=== PATIENT | female | born 1980 | race Two or more races ===

== ENCOUNTER 2017-09-24 06:02 | Day surgery (SDC) | payer BC, OTHER ==
[2017-09-08 18:54] VITALS: BMI 31.2
--- NOTE | 2017-09-20 11:47 | HP ---
HISTORY OF PRESENT ILLNESS Patient is a 37 y/o female with a past medical history of cervical Ca (remission ), migraine headache, childhood asthma, SVT and DJD. patient is scheduled for an elective right knee arthoscopy, 09/24/17. PCP: Dr Maddox Recent travel: none Family History:mother alive and well father alive and well Social History:resides at home with and 4 children Smoking: none Alcohol:none Drugs: none REVIEW OF SYSTEMS CONSTITUTIONAL: Absent: fever, chills, diaphoresis, generalized weakness, malaise, loss of appetite, weight change HEENT: Absent: rhinorrhea, nasal congestion, throat pain, throat swelling, difficulty swallowing, mouth swelling, ear pain, eye pain, visual changes CARDIOVASCULAR: Absent: chest pain, syncope, palpitations, irregular heart rate, lightheadedness , peripheral edema RESPIRATORY: Absent: cough, shortness of breath, dyspnea with exertion, orthopnea, wheezing, stridor, hemoptysis GASTROINTESTINAL: Absent: abdominal pain, abdominal distension, nausea, vomiting, diarrhea, constipation, melena, hematochezia GENITOURINARY: Absent: dysuria, frequency, urgency, hesitancy, hematuria, flank pain, genital pain MUSCULOSKELETAL: Present: right knee pain Absent: myalgia, arthralgia, joint swelling, back pain, neck pain SKIN: Absent: rash, itching, pallor HEMATOLOGIC/IMMUNOLOGIC: Absent: easy bleeding, easy bruising, lymphadenopathy, frequent infections ENDOCRINE: Absent: unexplained weight gain, unexplained weight loss, heat intolerance, cold intolerance NEUROLOGIC: Absent: headache, focal weakness or paresthesias, dizziness, unsteady gait, seizure, mental status changes, bladder or bowel incontinence PSYCHIATRIC: Absent: anxiety, depression, suicidal or homicidal ideation, hallucinations. PHYSICAL EXAMINATION: GENERAL: Awake, alert, and fully oriented, in no acute distress. HEAD: Normal with no signs of trauma. EYES: Pupils equal, round and reactive to light, extraocular movements intact, sclera anicteric, conjunctiva clear. No lid lag. EARS, NOSE, THROAT: Ears normal, nares patent, oropharynx clear without exudates. Moist mucous membranes. NECK: Normal range of motion, supple without lymphadenopathy, JVD, or masses. LUNGS: Breath sounds equal, clear to auscultation bilaterally. No wheezes, and no crackles. No accessory muscle use. HEART: Regular rate and rhythm, normal S1 and S2 without murmur, rub or gallop. ABDOMEN: Soft, nontender, not distended, normoactive bowel sounds, no guarding, no rebound, no masses. No hepatomegaly or splenomegaly. MUSCULOSKELETAL: Normal range of motion at all joints. No bony deformities or tenderness. No CVA tenderness. UPPER EXTREMITIES: 2+ pulses, warm, well-perfused. No cyanosis. No clubbing. No peripheral edema. LOWER EXTREMITIES: 2+ pulses, warm, well-perfused. No calf tenderness. No peripheral edema. NEUROLOGICAL: Cranial nerves II-XII intact. Normal speech. Normal gait. PSYCHIATRIC: Cooperative. Good eye contact. Appropriate mood and affect. SKIN: Warm, dry, normal turgor, no rashes or lesions noted, normal capillary refill. ASSESSMENT/PLAN: 1) MS DJD - patient is pending right knee arthoscopy, 09/24/17, Dr Ramey 2) cardiovascular svt - reports last episode was 2015, last follow up with cardiology (Dr Schneider) was in 2016, denies any further incidents of chest pain or shortness of breath, reports taking metropolol daily 3) neuro migraine headaches - continue prn tripitin and pamalor patient is optimized for surgery, pending cardiology clearance
[2017-09-24] MEDS ORDERED: ePHEDrine SULFATE 50 MG/1 ML AMPULE ONE (07:16)
[2017-09-24] MEDS ORDERED: PROPOFOL 20 ML ONE ×5 (07:17)
[2017-09-24] MEDS ORDERED: SUCCINYLCHOLINE CHLORIDE 200 MG/10 ML VIAL ONE (07:17)
[2017-09-24] MEDS ORDERED: MIDAZOLAM HCL 2 MG/2 ML SINGLE DOSE VIAL ONE (07:17)
[2017-09-24] MEDS ORDERED: methylPREDNISolone ACET (DEPO) 40 MG/1 ML VIAL ONE (07:19)
[2017-09-24] MEDS ORDERED: BUPIVACAINE HCL/PF 2.5 MG/ML - 30 ML VIAL IJ ONE (07:19)
[2017-09-24] MEDS ORDERED: EPINEPHrine 1:1,000 1 MG/1 ML - 30ML VIAL (INJECTION) ONE (07:19)
[2017-09-24] MEDS ORDERED: DESFLURANE GAS 240 ML BOTTLE IH ONE (08:13)
[2017-09-24] MEDS ORDERED: DEXAMETHASONE SOD PHOSPHATE 4 MG/1 ML VIAL ONE (08:46)
[2017-09-24] MEDS ORDERED: KETOROLAC TROMETHAMINE 30 MG/1 ML VIAL ONE (08:46)
[2017-09-24] MEDS ORDERED: ONDANSETRON 4 MG/2 ML VIAL ONE ×2 (08:46→09:14)
[2017-09-24] MEDS ORDERED: TRIAMCINOLONE ACET 40MG/1ML VIAL ONE (08:49)
[2017-09-24] MEDS ORDERED: TRIAMCINOLONE ACET 40MG/1ML VIAL NR ONE (08:55)
[2017-09-24] MEDS ORDERED: BUPIVACAINE HCL/PF 0.25% (2.5MG/ML) 10 ML VIAL STI ONE (08:55)
[2017-09-24] MEDS ORDERED: HYDROmorphone HCL/PF 1 MG/ML VIAL (FOR PYXIS CHARGING ONLY) ONE (08:57)
[2017-09-24] MEDS ORDERED: PATIENT'S OWN MEDICATION (NON-FORMULARY) (Rizatriptan Benzoate [Rizatriptan] 10 MG) PO PRN (09:05)
--- NOTE | 2017-09-24 09:08 | OP ---
Operative Note - Note: Operative Date: 09/24/17 Pre-Operative Diagnosis: Right knee synovitis Operation: Surgical arthroscopy right knee. Synovial biopsy Findings: See dictation Post-Operative Diagnosis: Same as Pre-op Surgeon: Armand Ramey Speedometer Inspector: Syd Ramey Anesthesiologist/CASH VAN SALESPERSON: Justin Stevenson Anesthesia: General Specimens Removed: Synovial biopsy Estimated Blood Loss (mls): 0 Fluid Volume Replaced (mls): 500 Operative Report Dictated: Yes
--- NOTE | 2017-09-24 09:10 | PN ---
Progress Note (short form) - Note Progress Note: 37F s/p surgical arthroscopy right knee w/synovial biopsy POD #0. -Pain control. -Incentive spirometry. -PT/OT/Rehab if needed. -WBAT RLE. -Crutch training. -Keep dressing clean & dry; remove dressing on Wednesday and cover suture sites with water-proof Band-Aid. -Percocet ordered to pharmacy for analgesia. -Discharge home: f/u [facility] in 1 week; call for appointment: . Armand Ramey MD (Orthopaedic Surgery).
[2017-09-24] MEDS ORDERED: ONDANSETRON 4 MG/2 ML VIAL IVPUSH ONE (09:18)
[2017-09-24] MEDS ORDERED: ONDANSETRON 4 MG/2 ML VIAL IVPUSH PRN (09:22)
[2017-09-24] MEDS ORDERED: oxyCODONE HCL 5 MG TABLET PO PRN (09:22)
[2017-09-24] MEDS ORDERED: LACTATED RINGERS SOLUTION 1,000 ML IV SCH (09:30)
[2017-09-24] MEDS ORDERED: traMADol HCL 50 MG TABLET PO SCH (10:00)
[2017-09-24] MEDS ORDERED: PATIENT'S OWN MEDICATION (NON-FORMULARY) (Metoprolol Tartrate [Metoprolol Tartrate] 100 MG PO SCH (10:00)
[2017-09-24] MEDS ORDERED: oxyCODONE HCL 5 MG TABLET ONE (10:02)
[2017-09-24 10:19] VITALS: TEMP 97.8
[2017-09-24] MEDS ORDERED: PROMETHAZINE HCL 25 MG/1 ML VIAL ONE (10:52)
[2017-09-24] MEDS ORDERED: PROMETHAZINE HCL 25 MG/1 ML VIAL IVPUSH ONE (10:54)
--- NOTE | 2017-09-24 10:54 | OP ---
DATE OF OPERATION: DATE OF DICTATION: 09/24/2017 SURGEON: Armand Ramey MD ORACLE FUSION CONSULTANT: Syd Ramey MD PREOPERATIVE DIAGNOSIS: Chronic synovitis, right knee. POSTOPERATIVE DIAGNOSIS: Chronic synovitis, right knee. OPERATION PERFORMED: 1. Arthroscopy, right knee. 2. Arthroscopic lavage washout. 3. Synovial biopsy. ANESTHESIA: Spinal with conscious sedation. OPERATION IN DETAIL: Patient correctly identified. Brought into the operating room. Right lower extremity was prepped, free-draped in the routine manner with Betadine scrub solution, wiped off with alcohol, DuraPrep applied. Timeout was called. Imaging was available for intraoperative evaluation. Preop evaluation under anesthesia that is an examination under anesthesia revealed a negative Christian sign; heel shake negative with a full extension noted; patellar tracking normal; no crepitus in the patellofemoral or femorotibial joints; ligament stability in the coronal, sagittal and rotational plane normal. Arthroscopic instrumentation introduced via an anterolateral portal. The diagnostic arthroscopy revealed a pristine patellofemoral and medial and lateral joint compartments including the menisci which were normal. The intercondylar notch was normal. There were multiple loose fragments floating in the knee in the synovial space which were washed out with the lavage, but diffuse areas of synovitis with associated patchy areas of synovitis particularly in the suprapatellar pouch noted much like a cyclops lesion draping in the patellofemoral articulation due to the chronic synovitis and thickening. Multiple biopsies were taken using pituitary rongeurs, sent for culture and sensitivity that is to exclude an infection in the synovium and for routine histopathology. The joint was again lavaged. Portals were closed with 3-0 nylon. The biopsies were retrieved through a suprapatellar portal on the right and closed with 3-0 nylon. MD JAKOB [place]ona/[id number] MTDD
[2017-09-24 11:59] VITALS: BP 101/63; PULSE 82
[2017-09-24] MEDS ORDERED: NORTRIPTYLINE HCL 25 MG CAPSULE PO SCH (22:00)
--- NOTE | 2017-10-05 14:33 | PATH ---
Surgical Pathology Report Patient Name: AMBROSE HARDIN [facility]. Rec. #: [id number] /Age/Gender: 1980 (Age: 37) / F Account: [id number] [facility] Taken: 09/24/2017 Received: 09/24/2017 Reported: 10/05/2017 Physicians: Armand Ramey M.D. Specimen(s) Received RIGHT KNEE TISSUE Clinical History Right knee chronic synovitis Final Diagnosis KNEE TISSUE, RIGHT, EXCISION: SYNOVIUM SHOWING CHRONIC AND GRANULOMATOUS (NON-NECROTIZING) INFLAMMATION. AFB AND GMS STAINS ARE NEGATIVE FOR ACID-FAST BACILLI AND FUNGAL ORGANISMS, RESPECTIVELY. Electronically Signed Carli Hernandez M.D. Gross Description Received in formalin labeled "right knee tissue," are 2 jackson-yellow soft tissue fragments averaging 0.5 cm in greatest dimension. The specimens are submitted in toto in one cassette. /09/24/201709/24/2017
== END 2017-09-24 11:50 | disposition home or self-care (01) ==
LOC: FASU 06:02
PROVIDERS: ATTEND Orthopaedic Surgery Orthopaedic Surgery of the Spine
PROC: 0S9C4ZZ Drainage of Right Knee Joint, Percutaneous Endoscopic Approach (ICD-10-PCS; principal; 2017-09-24 08:27)
DX: M65.861 Other synovitis and tenosynovitis, right lower leg (principal)
CPT/HCPCS: 87070; 87075; 87205; 88305-TC; 88313-TC; 94760

== ENCOUNTER 2018-03-18 09:09 | Day surgery (SDC) | payer BC, OTHER ==
[2018-03-16 09:59] VITALS: BMI 32.4
[2018-03-18] MEDS ORDERED: methylPREDNISolone ACET (DEPO) 40 MG/1 ML VIAL ONE (13:06)
[2018-03-18] MEDS ORDERED: BUPIVACAINE HCL 0.25% 125 MG/50 ML VIAL ONE (13:06)
[2018-03-18] MEDS ORDERED: MIDAZOLAM HCL 2 MG/2 ML SINGLE DOSE VIAL ONE (13:25)
[2018-03-18] MEDS ORDERED: DEXAMETHASONE SOD PHOSPHATE 4 MG/1 ML VIAL ONE ×2 (13:37→14:49)
[2018-03-18] MEDS ORDERED: ONDANSETRON 4 MG/2 ML VIAL ONE ×3 (13:37→15:11)
[2018-03-18] MEDS ORDERED: PROPOFOL 20 ML ONE (13:39)
[2018-03-18] MEDS ORDERED: ceFAZolin SODIUM 1 GM VIAL ONE (13:45)
[2018-03-18] MEDS ORDERED: EPINEPHrine/PF 1 MG/1 ML (1:1,000) AMPULE ONE (14:35)
[2018-03-18] MEDS ORDERED: BUPIVACAINE HCL/PF 0.25% (2.5MG/ML) 10 ML VIAL IJ ONE (14:48)
[2018-03-18] MEDS ORDERED: PATIENT'S OWN MEDICATION (NON-FORMULARY) (Rizatriptan Benzoate [Rizatriptan] 10 MG) PO PRN (15:02)
--- NOTE | 2018-03-18 15:04 | PN ---
Progress Note (short form) - Note Progress Note: 48F s/p SARK, patellar chondroplasty POD #0. -Pain control. -WBAT RLE. -f/u post-op trial of void. -Diet as tolerated. -Keep dressing clean & dry; d/c on Wednesday & place waterproof Band-Aids over incision sites. -Cane vs crutches. -f/u [facility] [place] [facility] 03/25/2017; call for appointment; [phone]. Syd Ramey MD (Orthopaedic Surgery).
--- NOTE | 2018-03-18 15:06 | OP ---
Operative Note - Note: Operative Date: 03/18/18 Pre-Operative Diagnosis: Right medial meniscus tear Operation: Surgical arthroscopy right knee. Debridement. Chondroplasty patella Findings: 1. Chondral fibrillations patella 2. Degenerative ACL 3. No medial meniscus tear Tourniquet Pressure: 250mmHg Tourniquet Time: 40 minutes Post-Operative Diagnosis: Other (See findings) Surgeon: Syd Ramey Manager Personal: Armand Ramey Anesthesiologist/ORDER DISPATCHER CHIEF: Joseph Mojica Anesthesia: General (LMA) Estimated Blood Loss (mls): 0 Fluid Volume Replaced (mls): 1,000 (Crystalloid) Operative Report Dictated: Yes
[2018-03-18] MEDS ORDERED: oxyCODONE HCL 5 MG TABLET PO PRN (15:10)
[2018-03-18] MEDS ORDERED: PROMETHAZINE HCL 25 MG/1 ML VIAL IVPUSH PRN (15:10)
[2018-03-18] MEDS ORDERED: LACTATED RINGERS SOLUTION 1,000 ML IV SCH (15:15)
[2018-03-18] MEDS ORDERED: oxyCODONE HCL 5 MG TABLET ONE ×2 (15:57→16:51)
[2018-03-18] MEDS ORDERED: ACETAMINOPHEN 325 MG TABLET (FP) ONE (15:58)
[2018-03-18 16:40] VITALS: TEMP 98
[2018-03-18] MEDS ORDERED: KETOROLAC TROMETHAMINE 30 MG/1 ML VIAL ONE (16:50)
[2018-03-18] MEDS ORDERED: ACETAMINOPHEN 325 MG TABLET (FP) PO ONE (17:30)
[2018-03-18 18:34] VITALS: BP 122/70; PULSE 89
[2018-03-18] MEDS ORDERED: NORTRIPTYLINE HCL 25 MG CAPSULE PO SCH (22:00)
[2018-03-18] MEDS ORDERED: METOPROLOL TARTRATE 50 MG TABLET (FP) PO SCH (22:00)
--- NOTE | 2018-03-18 22:52 | OP ---
Date of Operation: 03/18/2018 Surgeon: Syd Ramey MD [employer] Principal: Armand Ramey MD Pre-Operative Diagnosis: Right medial meniscus tear Post-Operative Diagnosis: Right knee: 1. Degenerative ACL 2. Chondromalacia patella 3. No medial meniscus tear Surgical Procedure: Right knee: 1. Surgical arthroscopy 2. Chondroplasty patella. 3. Debridement loose bodies 4. Intra-articular (large joint) injection with 5cc 0.25% Marcaine. Anesthesiologist: Joseph Mojica MD Anesthesia: General, LMA. Position: Supine. Incision: Standard anteromedial & anterolateral knee arthroscopy portals. Tourniquet Pressure: 250mmHg. Tourniquet Time: 40 minutes. Estimated Blood Loss: 0cc. Intravenous Fluid: 800cc crystalloid. Specimens: None. Drains: None. Complications: None. Urine output: None. Bacteriology: None. Transfusions: None. Closure: 3-0 Nylon. Indications: The patient was indicated for a surgical arthroscopy of the right knee with debridement to facilitate improved motion and mobilization, and to prevent complications associated with a sedentary lifestyle. The patient was identified in the holding area by her armband. A long discussion was held with the patient in the presence of her regarding the risks, benefits and alternatives of the above-named procedure. Risks include but are not limited to: pain, bleeding, infection, damage to surrounding structures (including nerves, blood vessels, skin, ligaments, tendons and bone), wound complications, need for further surgery, blood clots, myocardial infarction, pulmonary embolism, anaesthesia complications, compartment syndrome, limb loss, limp, loss of function, and . Benefits as mentioned above. Alternatives include no surgery. All questions were answered. The patient and her family understood and agreed to the procedure. Informed consent was obtained, witnessed and verified. The patients correct operative limb - the right lower extremity - was marked, and the patient was taken to the operating room after being seen by the anesthesia and nursing staff. Procedure: The patient was brought into the operating room, placed on the OR table and secured with a safety strap. Consent and the operative site was again verified with the patient and nursing and anaesthesia staff. Anaesthesia was then administered without complication. 2g IV Ancef were administered. A time out was done led by me, the attending surgeon. The patient was positioned with bony prominences well padded, and a tourniquet was placed proximally and set to 250mmHg. A lateral thigh post was attached to the bed. The operative limb was prepped in standard sterile fashion using betadine prep & scrub, wiped off with alcohol, and then DuraPrep applied. The operative limb was then free draped. Time out was again done, the limb was exsanguinated using an Esmarch, the tourniquet was inflated, and the case began. Surface anatomy of the knee was drawn, marking the patella, patellar tendon, and medial & lateral joint lines. With the knee flexed to 45 degrees, a standard anterolateral arthroscopy portal was made using an 11 blade. A blunt trocar was then inserted into the knee at the same angle as the incision. The blunt trocar was then slipped into the suprapatellar pouch as the knee was slowly extended. The trocar was removed through its overlying canula, and the arthroscope was inserted in its place. The fluid inflow, which had already been primed, was then attached to the canula along with the outflow suction tubing. The knee was then insufflated with normal saline solution. The suprapatellar pouch was then inspected with synovitis seen. Multiple loose bodies were seen. The medial & lateral retro-patellar surfaces and the trochlear sulcus revealed Outerbridge Grade 2 chondromalacia with superficial fissuring and fibrillations. The patellofemoral articulation appeared otherwise congruous. Next, the arthroscope was delivered into the medial gutter of the knee as the knee was slowly flexed. No loose bodies were seen. With gentle valgus force applied to the knee, the arthroscope was slipped into the medial compartment. The cartilage of the medial femoral condyle and medial tibial plateau appeared healthy. The medial meniscus appeared intact with no evidence of tear. Next, an 18-gauge spinal needle was used to plan an anteromedial portal. With the correct position and working trajectory verified, the spinal needle was removed, and an 11 blade was utilized to create a standard anteromedial arthroscopy portal. A blunt trocar was then inserted via the anteromedial portal into the medial compartment of the knee under direct arthroscopic visualization via the anterolateral portal. A probe was inserted via the anteromedial portal demonstrating the stability of the meniscus and confirming the absence of a tear. The meniscal root and capsular attachments were intact, as also determined by the probe. The probe was used to inspect the superior and inferior surfaces of the medial meniscus and no other derangement was identified. Next, the arthroscope was delivered into the intercondylar notch. The ACL was visualized and appeared degenerative. The probe was used to demonstrate that the ACL was intact but degenerative. The PCL was not visualized. Gentle varus stress was applied to the knee as the arthroscope was delivered into the lateral compartment of the knee. The cartilage of the lateral femoral condyle and lateral tibial plateau appeared healthy. The lateral meniscus appeared intact with no evidence of tear. The arthroscope was then delivered into the lateral gutter of the knee where no loose bodies were seen. The arthroscope was then returned to the suprapatellar pouch as the knee was gently extended. The multiple loose bodies were again seen and debrided using a motorized 3.5mm shaver that was inserted via the anteromedial portal. Shaving chondroplasty of patellar cartilage fibrillations was performed. The knee was irrigated with 3-4L of normal saline solution. All fluid was suctioned out of the knee. An intra-articular injection consisting of 5mL of 0.25% Marcaine was performed. Hemostasis was assured, and the incisions were closed primarily using 3-0 nylon sutures in figure-8 fashion. Xeroform and a sterile, compressive dressing was applied. The tourniquet was released at a final time of 40 minutes. The sponge and needle counts were correct at the end of the case and I the attending was present and scrubbed throughout the case. The patient was then transferred to the recovery room in stable condition, as per the anesthesiology team, having tolerated the procedure well. Intra-operative photographs were captured using the arthroscope at numerous steps throughout the case. MD JAKOB [place]/[id number] MTDD
[2018-03-19] MEDS ORDERED: CHOLECALCIFEROL (VITAMIN D3) 1,000 UNIT TABLET (FP) PO SCH (10:00)
--- NOTE | 2018-03-24 15:03 | PATH ---
Surgical Pathology Report Patient Name: AMBROSE HARDIN Med. Rec. #: [id number] /Age/Gender: 1980 (Age: 37) / F Account: [id number] Location: [facility] Taken: 03/18/2018 Received: 03/18/2018 Reported: 03/24/2018 Physicians: Syd Ramey M.D. Specimen(s) Received RIGHT KNEE SHAVINGS Clinical History Medial meniscal tear right knee, degenerative ACL right knee Final Diagnosis KNEE, RIGHT, ARTHROSCOPIC SHAVINGS: CARTILAGE, FIBROSYNOVIAL AND FIBROADIPOSE TISSUE. Electronically Signed Carli Hernandez M.D. Gross Description Received in formalin labeled "right knee shavings," is a 1.5 x 1.2 x 0.2 cm aggregate of jackson-yellow soft tissue fragments. The formalin is filtered and the specimen is entirely submitted in one cassette. 03/21/201803/21/2018
== END 2018-03-18 18:00 | disposition home or self-care (01) ==
LOC: FASU 09:09
PROVIDERS: ATTEND Orthopaedic Surgery Adult Reconstructive Orthopaedic Surgery
PROC: 0SQC4ZZ Repair Right Knee Joint, Percutaneous Endoscopic Approach (ICD-10-PCS; 2018-03-18)
PROC: 0SBC4ZZ Excision of Right Knee Joint, Percutaneous Endoscopic Approach (ICD-10-PCS; principal; 2018-03-18 14:19)
DX: M22.8X1 Other disorders of patella, right knee (principal); M23.611 Other spontaneous disruption of anterior cruciate ligament of right knee
CPT/HCPCS: 29877; G0289; 84703; 88304-TC; 94760